=== PATIENT | female | born 1955 | race Native Hawaiian/Other Pacific Islander ===

== ENCOUNTER 2018-06-09 09:00 | Outpatient (CLI) | payer MEDICAID ==
--- NOTE | 2018-06-09 10:59 | Ultrasound Report ---
ULTRASOUND ABDOMEN COMPLETE: TECHNIQUE: Transabdominal ultrasound with color Doppler interrogation. HISTORY: Elevation of levels of transaminase and lactic acid. COMPARISON: none. FINDINGS: LIVER: The liver parenchyma is echogenic and attenuates the ultrasound beam consistent with fatty infiltration. No obvious liver lesion is identified. BILIARY SYSTEM: Cholecystectomy. The CBD measures 6.3 mm. PANCREAS: The pancreatic head, neck and body are unremarkable. The tail is obscured. SPLEEN: Normal. 9.9 cm in length. KIDNEYS: Normal. AORTA/IVC: Normal. ASCITES: None. IMPRESSION: Moderate diffuse fatty infiltration of the liver. Cholecystectomy.
== END 2018-06-09 09:01 | disposition home or self-care (01) ==
LOC: US 09:00
PROVIDERS: ATTEND Internal Medicine
DX: K76.0 Fatty (change of) liver, not elsewhere classified (principal); I10 Essential (primary) hypertension; Z90.49 Acquired absence of other specified parts of digestive tract
CPT/HCPCS: 76700